=== PATIENT | female | born 1955 | race Caucasian/White ===

== ENCOUNTER 2023-08-31 06:43 | Day surgery (SDC) | payer MEDICARE, OTHER ==
[2023-08-31] VITALS (13 sets, daily range): BP systolic 121–183; BP diastolic 72–91; PULSE 56–85; TEMP 97.9–98.3
[~2023-08-31] VITALS: Ht 172.7 cm; Wt 73.8 kg
[2023-08-31] MEDS ORDERED: DIFLUCAN150 MG PO (07:26)
[2023-08-31] MEDS ORDERED: NORVASC2.5 MG PO (07:27)
[2023-08-31] MEDS ORDERED: BUSPAR DIVIDOSE15 MG (07:28)
[2023-08-31] MEDS ORDERED: COZAAR100 MG PO (07:29)
[2023-08-31] MEDS ORDERED: MOBIC 7.5MG7.5 MG (07:31)
[2023-08-31] MEDS ORDERED: FLEXERIL5 MG (07:32)
[2023-08-31] MEDS ORDERED: ZYRTEC 10MG10 MG PO (07:33)
[2023-08-31] MEDS ORDERED: VIACTIV PO (07:33)
[2023-08-31] MEDS ORDERED: THE MEDICINE S200 M2 PO (07:35)
[2023-08-31] MEDS ORDERED: ALA 100MG PO (07:35)
[2023-08-31] MEDS ORDERED: TURMERIC500 MG (07:36)
[2023-08-31] MEDS ORDERED: VITAMIN B12 781 TAB PO (07:36)
[2023-08-31] MEDS ORDERED: PROBIOTIC BLEN1 EACH PO (07:37)
[2023-08-31] MEDS ORDERED: OCUVITE1 TA1 PO (07:37)
[2023-08-31] MEDS ORDERED: VTAMINC250TA (07:38)
[2023-08-31] MEDS ORDERED: MAGNESIUM500 MG PO (07:38)
[2023-08-31] MEDS ORDERED: PHARMASSURE CHE30 MG PO (07:39)
--- NOTE | 2023-08-31 08:37 | NUR ---
0701 PT AMBULATORY TO BAY WITH STEADY GAIT, BREATHING EVEN AND UNLABORED. PT IS ALERT AND ORIENTED, ACCOMPANIED BY HER COUSIN. CONSENTS REVIEWED AND SIGNED BY PT. IV ESTABLISHED. LR INFUSING VIA DIAL A FLOW AT 100 ML/HR. CALL LIGHT IN REACH. WARM BLANKETS PROVIDED.
--- NOTE | 2023-08-31 12:20 | NUR ---
pt brought to room from pacu. pt drowsy, vital signs are stable. right shoulder dressing is cdi, sling in place. pt on 2L nasal cannula. fluids infusing into left ac. call light in reach.
[2023-08-31] MEDS ORDERED: PAPAYA ENZYME1 TA1 PO (13:36)
--- NOTE | 2023-08-31 20:00 | NUR ---
PT A&O X4 LAYING IN BED. VSS ON 2L/NC. DENYING ANY PAIN OR SOB. HAD X1 EPISODE OF EMESIS & PT STATES "I FEEL MUCH BETTER NOW, I THINK I JUST NEEDED TO PUKE", DENYING NEED FOR PRN ZOFRAN. AMBULATED TO RESTROOM WITH X1 ASSIST. IVF INFUSING TO LEFT AC. CALL LIGHT IN REACH & BED LOWERED. DENYING FURTHER NEEDS AT THIS TIME.
[2023-09-01] VITALS (7 sets, daily range): BP systolic 154–162; BP diastolic 77–79; PULSE 63–70; TEMP 98.3–98.9
--- NOTE | 2023-09-01 06:32 | NUR ---
PT A&OX4 LAYING IN BED. ON ROOM AIR NOW. NO N/V OR EMESIS SINCE LAST NIGHT AROUND 190. STATES PAIN RANGES FROM 5 TO 7, & STATES SHE WILL ONLY TAKE 500MG OF TYLENOL. TOLERATING PO INTAKE. CALL LIGHT IN REACH & DENYING FURTHER NEEDS.
[2023-09-01 07:09] LABS: HEMATOCRIT 32.8 % (37.0-47.0); HEMOGLOBIN 11.7 g/dl (12.5-16.0)
[2023-09-01 07:20] LABS: CALCIUM 9.3 mg/dL (8.4-10.2); CREATININE, serum 0.78 mg/dL (0.57-1.11); POTASSIUM 4.1 mmol/L (3.5-4.5)
--- NOTE | 2023-09-01 08:00 | NUR ---
PATIENT IS A&O. VSS. NO C/O PAIN OR NAUSEA. AM MEDS GIVEN. LEFT AC IV TO INT. RTS DSG IS CD&I WITH BULK DSG INPLACE AND SLING TO RUE. HEAD TO TOE ASSESSMENT COMPLETE. PT/OT CONSULTED. STUDENT NURSE ALSO WORKING WITH PATIENT TODAY, SEE CHARTING. NO OTHER NEEDS AT THIS TIME. CALL LIGHT IN REACH.
--- NOTE | 2023-09-01 08:30 | NUR ---
PT ambulated with pt in hallway and assisted with arm exercises. PT tolerated well with moderate pain 5/10 in Right shoulder after. PT denies need for pain intervention. PT in bed with call light within reach.
--- NOTE | 2023-09-01 10:30 | NUR ---
INT LAC discontinued with catheter intact per Charge nurse orders. PT tolerated well. No bleeding site wrapped with 2x2 and coban.
--- NOTE | 2023-09-01 11:13 | NUR ---
youth worker met with patient to discuss discharge planning. Pt lives in [place], [place]. She sees Dr. Clay and obtains medications from [facility] with no difficulties. Pt does not use any DME and is independent with all ADLS. She has her sister, Ana as DPOA-HC and Ana has a copy at home. Pt plans to return home with her cousin rick. She utilizes services from [facility] whom comes into her home. Discharge Plan: Home
--- NOTE | 2023-09-01 11:47 | NUR ---
D: Initial visit: [employer] stopped by room on rounds. Pt was resting and content with her cousin in the room. A: Pt has no needs right now. P: [employer] informed pt that if she needed anything to let her nurse know. [employer] will follow up as needed.
[2023-09-01] MEDS ORDERED: CEPHALEXIN500 M1 PO (14:15)
[2023-09-01] MEDS ORDERED: TYLENOL W/COD1 UDTAB PO (14:16)
--- NOTE | 2023-09-01 15:20 | NUR ---
PATIENT DISCHARGING HOME VIA AMBULATORY TO PERSONAL VEHICLE WITH FRIEND. GAVE DISCHARGE INSTRUCTION, E-SCRIPTS SENT, AND DISCUSSED F/U APT AND DSG. ANSWERED QUESTIONS/CONCERNS. STUDENT NURSE JOHN'D IV SITE EARLIER TODAY AND COVERED SITE. PATIENT IS DRESSED, PACKED AND DISCHARGED TO HOME.
== END 2023-09-01 15:20 | disposition home or self-care (01) ==
LOC: SDCO 06:43 → SURG 12:35 → SDCO 15:45
PROVIDERS: Physician Assistant
DX: M75.121 Complete rotator cuff tear or rupture of right shoulder, not specified as traumatic (principal); I10 Essential (primary) hypertension; F41.9 Anxiety disorder, unspecified; E53.8 Deficiency of other specified B group vitamins; Z79.899 Other long term (current) drug therapy; Z79.620 Long term (current) use of immunosuppressive biologic
CPT/HCPCS: OP; A4619; A9284; C1713; C1776; J0690; J1100; J1170; J1580; J1885; J2405; J2704; J3010; J7030